=== PATIENT | male | born 1975 | race Caucasian/White ===

== ENCOUNTER 2016-08-13 09:26 | Emergency (ER) | payer OTHER ==
[2016-08-13] MEDS ORDERED: NEURONTIN300 M1 PO (09:40)
[2016-08-13] MEDS ORDERED: OXYCONTIN10 M2 PO (09:40)
[2016-08-13] MEDS ORDERED: OXYCODONE HCL10 M2 PO ×2 (10:04→10:20)
== END 2016-08-13 10:28 ==
LOC: EDMED 09:26
DX: G89.18 Other acute postprocedural pain (principal); M25.512 Pain in left shoulder

== ENCOUNTER 2016-08-20 10:05 | Emergency (ER) | payer OTHER ==
[~2016-08-20 10:05] MED LIST: NEURONTIN300 M1 PO; OXYCODONE HCL10 M2 PO; OXYCONTIN10 M2 PO
[2016-08-20] MEDS ORDERED: OXYCODONE HCL10 M2 PO (10:30)
== END 2016-08-20 10:41 ==
LOC: EDMED 10:05
DX: G89.18 Other acute postprocedural pain (principal); M25.512 Pain in left shoulder; Z76.0 Encounter for issue of repeat prescription